=== PATIENT | male | born 1980 | race Caucasian/White ===

== ENCOUNTER 2023-12-24 14:16 | Emergency (ER) | payer SELFPAY ==
[~2023-12-24] VITALS: Ht 177.8 cm; Wt 88.5 kg
[2023-12-24 14:21] VITALS: BP 158/111; PULSE 80; RESP 18; TEMP 97.7; O2SAT 98
[2023-12-24 15:12] LABS: BASOPHILS % (AUTO) 0.7 % (0.0-2.0); EOSINOPHILS # (AUTO) 0.2 K/uL (0-0.4); EOSINOPHILS % (AUTO) 2.6 % (0.0-4.0); HEMATOCRIT 55.5 % (36-52); HEMOGLOBIN 19.3 g/dL (12.0-18.0); LYMPHOCYTES # (AUTO) 1.1 K/uL (2.0-11.5); LYMPHOCYTES % (AUTO) 18.5 % (20.5-51.1); MEAN CORPUSCULAR HEMOGLOBIN 31 pg (27-31); MEAN CORPUSCULAR HGB CONC 35 g/dL (33-37); MEAN CORPUSCULAR VOLUME 89.1 fL (80-94); MONOCYTES # (AUTO) 0.8 K/uL (0.8-1.0); MONOCYTES % (AUTO) 14.2 % (1.7-9.3); NEUTROPHILS # (AUTO) 3.8 K/uL (1.8-7.7); PLATELET COUNT (AUTO) 255 K/uL (140-450); RED BLOOD CELL COUNT(AUTO) 6.23 MIL/uL (4.20-6.10); RED CELL DISTRIBUTION WIDTH 14.7 % (11.6-13.7); WHITE BLOOD COUNT (AUTO) 5.9 K/uL (4.8-10.8)
[2023-12-24 15:27] LABS: ALBUMIN 4.5 g/dL (3.4-5.0); ANION GAP 13.5 (8-16); CALCIUM 9.2 mg/dL (8.5-10.1); CREATININE 1.2 mg/dL (0.6-1.3); POTASSIUM 4.5 mmol/L (3.5-5.1); TOTAL BILIRUBIN 0.5 mg/dL (0.0-1.0); TOTAL PROTEIN, SERUM 8.6 g/dL (6.4-8.2)
[2023-12-24 15:29] LABS: FLU A ANTIGEN negative (NEGATIVE); FLU B ANTIGEN negative (NEGATIVE)
[2023-12-24] MEDS ORDERED: ELIMC TP (15:40)
[2023-12-24] MEDS ORDERED: TRAZ-343 PO (15:46)
[2023-12-24] MEDS ORDERED: HYDR25CA1 PO (15:47)
[2023-12-24 16:05] VITALS: BP 163/104; PULSE 71; RESP 15; TEMP 98.8; O2SAT 99
== END 2023-12-24 16:04 | disposition home or self-care (01) ==
LOC: MED 14:16
DX: J06.9 Acute upper respiratory infection, unspecified (principal); Z20.822 Contact with and (suspected) exposure to COVID-19; L20.9 Atopic dermatitis, unspecified; D75.1 Secondary polycythemia; Z79.899 Other long term (current) drug therapy
CPT/HCPCS: 36415; 71045; 80053; 85025; 86592; 87491; 99284